=== PATIENT | female | born 1960 | race Caucasian/White ===

== ENCOUNTER 2016-12-11 11:16 | Emergency (ER) | payer OTHER ==
[2016-12-11 11:37] VITALS: BP 116/73; PULSE 86; TEMP 97.3; BMI 29.5
[2016-12-11] MEDS ORDERED: ONDANSETRON 4 MG/2 ML VIAL IVPUSH ONE (12:04)
[2016-12-11] MEDS ORDERED: KETOROLAC TROMETHAMINE 30 MG/1 ML VIAL IVPUSH ONE (12:04)
--- NOTE | 2016-12-11 12:04 | PDOC ---
History of Present Illness - History of Present Illness Initial Comments: 12/11/16 12:27 Patient is a 56 year old female with significant medical hx of borderline diabetes and borderline hypercholeseterolemia who is presenting to the ED with two days of left lower back pain. Patient states that her pain began on her way to work yesterday. She complains of non-radiating, constant, left lower back pain. The patient states she had some mild relief of her pain after taking Tylenol. She also endorses some nausea. Denies any dysuria, hematuria, vomiting , diarrhea, fever, or chills. Allergies: NKDA Social Hx: Denies toxic habits. <Monica Dooley - Last Filed: 12/11/16 15:48> - General History Source: Patient, Old Records Exam Limitations: No Limitations <Lucero Paige - Last Filed: 12/11/16 16:16> - General Chief Complaint: Pain Stated Complaint: BACK/ABD PAIN (KIDNEY) Time Seen by Provider: 12/11/16 11:48 Past History <Monica Dooley - Last Filed: 12/11/16 15:48> - Past Medical History Diabetes: Yes (borderline) Hypercholesterolemia: Yes (bordeline) - Psycho/Social/Smoking Cessation Hx Suicidal Ideation: No Smoking History: Former smoker Have you smoked in the past 12 months: No Information on smoking cessation initiated: No Hx Alcohol Use: No Drug/Substance Use Hx: No <Lucero Paige - Last Filed: 12/11/16 16:16> - Past Medical History Allergies/Adverse Reactions: Allergies Allergy/AdvReac Type Severity Reaction Status Date / Time No Known Allergies Allergy Unverified 12/11/16 11:37 Home Medications: Ambulatory Orders NK [No Known Home Medication] 12/11/16 Review of Systems - Review of Systems Comments:: 12/11/16 12:30 GENERAL/CONSTITUTIONAL: No fever or chills. No weakness. HEAD, EYES, EARS, NOSE AND THROAT: No change in vision. No ear pain or discharge. No sore throat. CARDIOVASCULAR: No chest pain or shortness of breath. RESPIRATORY: No cough, wheezing, or hemoptysis. GASTROINTESTINAL: Nausea. No vomiting, diarrhea or constipation. GENITOURINARY: No dysuria, frequency, or change in urination. MUSCULOSKELETAL: Left lower back pain. No joint or muscle swelling or pain. No neck pain. ENDOCRINE: No increased thirst. No abnormal weight change. SKIN: No rash NEUROLOGIC: No headache, vertigo, loss of consciousness, or change in strength/ sensation. <Monica Dooley - Last Filed: 12/11/16 15:48> *Physical Exam - Vital Signs Last Vital Signs Temp Pulse Resp BP Pulse Ox 97.3 F L 86 17 116/73 100 12/11/16 11:33 12/11/16 11:33 12/11/16 11:33 12/11/16 11:33 12/11/16 11:33 - Physical Exam Comments: 12/11/16 12:31 GENERAL: Awake, alert, and fully oriented, in no acute distress HEAD: No signs of trauma EYES: PERRLA, EOMI, sclera anicteric, conjunctiva clear ENT: Auricles normal inspection, hearing grossly normal, nares patent, oropharynx clear without exudates. Moist mucosa NECK: Normal ROM, supple, no lymphadenopathy, JVD, or masses LUNGS: Breath sounds equal, clear to auscultation bilaterally. No wheezes, and no crackles HEART: Regular rate and rhythm, normal S1 and S2, no murmurs, rubs or gallops ABDOMEN: Soft, nontender, normoactive bowel sounds. No guarding, no rebound. No masses MUSCULOSKELETAL: No CVA tenderness. No cervical, thoracic, or lumbar tenderness. EXTREMITIES: Normal range of motion, no edema. No clubbing or cyanosis. No cords, erythema, or tenderness NEUROLOGICAL: Cranial nerves II through XII grossly intact. Normal speech, normal gait SKIN: Warm, Dry, normal turgor, no rashes or lesions noted. HEMATOLOGIC/LYMPHATIC: No anemia, easy bleeding, or history of blood clots. ALLERGIC/IMMUNOLOGIC: No hives or skin allergy. <Monica Dooley - Last Filed: 12/11/16 15:48> - Vital Signs Last Vital Signs Temp Pulse Resp BP Pulse Ox 97.3 F L 86 17 116/73 100 12/11/16 11:33 12/11/16 11:33 12/11/16 11:33 12/11/16 11:33 12/11/16 11:33 <Lucero Paige - Last Filed: 12/11/16 16:16> ED Treatment Course - LABORATORY CBC & Chemistry Diagram: 12/11/16 12:00 12/11/16 12:00 - RADIOLOGY Radiograph Interpretation: 12/11/16 15:48 Abdomen/Pelvis CT Impression: Essentially normal CT scan of the abdomen and pelvis with no evidence of urinary tract calculi, obstructive uropathy or acute pathology. Reported By: Bird Mccloud MD - Medications Given in the ED: ED Medications Discontinued Medications Generic Name Dose Route Start Last Admin Trade Name Christian PRN Reason Stop Dose Admin Ketorolac Tromethamine 30 mg 12/11/16 12:04 12/11/16 12:19 Toradol Injection - IVPUSH 12/11/16 12:05 30 mg ONCE ONE Administration Ondansetron HCl 4 mg 12/11/16 12:04 12/11/16 12:19 Zofran Injection IVPUSH 12/11/16 12:05 4 mg ONCE ONE Administration <Monica Dooley - Last Filed: 12/11/16 15:48> - LABORATORY CBC & Chemistry Diagram: 12/11/16 12:00 12/11/16 12:00 <Lucero Paige - Last Filed: 12/11/16 16:16> Medical Decision Making - Medical Decision Making 12/11/16 12:05 56-year-old female with no significant past medical history presents the emergency Department with complaints of left-sided lower back pain/flank pain since yesterday unrelieved with Tylenol and minimal nausea. Differential diagnosis includes but is not limited to: Nephrolithiasis, pyelonephritis, muscular strain, muscle spasm, UTI. Plan: 1. Urine analysis 2. Labs 3. Pain management 4. Observe and reevaluate 12/11/16 16:03 Addendum: Labs are reviewed and are noted in the EMR. CT scan of the abdomen and pelvis shows no evidence of renal calculi. I have reevaluated the patient at this time and she is feeling improved. I've discussed all the results of the serologic and radiologic studies with the patient. The plan is to discharge her home, NSAIDs as needed for pain and follow-up with primary care doctor by the end of the week. I have also advised the patient to return to the emergency department if her symptoms persist, worsen, or new symptoms arise. <Lucero Paige - Last Filed: 12/11/16 16:16> *DC/Admit/Observation/Transfer - Attestations Scribe Attestion: 12/11/16 12:33 Documentation prepared by Monica Dooley, acting as medical clerk for Lucero Paige MD. <Monica Dooley - Last Filed: 12/11/16 15:48> - Discharge Dispostion Admit: No - Attestations Physician Attestion: 12/11/16 12:06 I, Dr. Lucero Paige, attest that the scribes documentation that appears above has been prepared under my direction and personally reviewed by me in its entirety. I confirmed that the note above accurately reflects all work, treatment, procedures, and medical decision-making performed by me. <Lucero Paige - Last Filed: 12/11/16 16:16> Diagnosis at time of Disposition: Low back pain - Discharge Dispostion Disposition: HOME Condition at time of disposition: Stable - Referrals Referrals: Tim Aguilar MD [Primary Care Provider] - - Patient Instructions Printed Discharge Instructions: DI for Low Back Pain Additional Instructions: He make take ibuprofen 800 mg every 6-8 hours as needed for your back pain. Please follow-up with your primary care physician by the end of the week and return to the emergency department if your symptoms persist, worsen, or new symptoms arise. - Post Discharge Activity Work/School Note: Back to Work
[2016-12-11] MEDS ORDERED: KETOROLAC TROMETHAMINE 30 MG/1 ML VIAL ONE (12:15)
[2016-12-11] MEDS ORDERED: ONDANSETRON 4 MG/2 ML VIAL ONE (12:15)
[2016-12-11 12:39] LABS: BASOPHIL 2.3 % (0-2.0); EOSINOPHIL 5.8 % (0-4.5); MCH 29.5 pg (25.7-33.7); MCHC 32.8 g/dl (32.0-36.0); MEAN PLT VOLUME 8.1 fl (7.5-11.1); NEUTROPHILS 53.7 % (42.8-82.8); PLATELET COUNT 236 K/MM3 (134-434); RDW 12.9 % (11.6-15.6); WHITE BLOOD COUNT 5.4 K/mm3 (4.0-10.0)
[2016-12-11 13:03] LABS: ALBUMIN 3.5 g/dl (3.4-5.0); ANION GAP 9 (8-16); BILIRUBIN,TOTAL 0.3 mg/dL (0.2-1.0); CALCIUM 8.7 mg/dL (8.5-10.1); CO2 29 mmol/L (21-32); CREATININE 0.9 mg/dL (0.55-1.02); GLUCOSE,RANDOM 106 mg/dL (74-106); SGOT/AST 22 U/L (15-37); SGPT/ALT 21 U/L (12-78); TOT PROT 6.9 g/dl (6.4-8.2)
[2016-12-11 13:04] LABS: ALK PHOS 66 U/L (45-117)
[2016-12-11 13:21] LABS: URINE APPEARANCE CLEAR; URINE BILIRUBIN NEGATIVE (NEGATIVE); URINE COLOR STRAW; URINE GLUCOSE (UA) NEGATIVE (NEGATIVE); URINE KETONE NEGATIVE (NEGATIVE); URINE LEUK ESTERASE NEGATIVE (NEGATIVE); URINE NITRITE NEGATIVE (NEGATIVE); URINE PROTEIN NEGATIVE (NEGATIVE); URINE UROBILINOGEN NEGATIVE E.U./dl (0.2-1.0)
[2016-12-11 13:26] LABS: URINE BLOOD 2+ (NEGATIVE)
[2016-12-11 13:31] LABS: URINE MUCUS RARE; URINE RBC 3 /hpf (0-3); URINE WBC <1 /hpf (3-5)
== END 2016-12-11 16:20 | disposition home or self-care (01) ==
LOC: JER 11:16
PROC: 3E0333Z Introduction of Anti-inflammatory into Peripheral Vein, Percutaneous Approach (ICD-10-PCS; principal; 2016-12-11)
PROC: 3E033GC Introduction of Other Therapeutic Substance into Peripheral Vein, Percutaneous Approach (ICD-10-PCS; 2016-12-11)
DX: M54.5 Low back pain (principal)
CPT/HCPCS: 36415; 74176-TC; 80053; 81003; 81015; 85025; 99282-25

== ENCOUNTER 2018-02-25 10:47 | Day surgery (SDC) | payer OTHER ==
[2018-02-24 14:06] VITALS: BMI 26.4
[2018-02-25 11:29] VITALS: TEMP 98.1
[2018-02-25 12:06] VITALS: PULSE 72
[2018-02-25 12:11] VITALS: BP 107/69
--- NOTE | 2018-02-26 14:32 | PATH ---
Surgical Pathology Report Patient Name: CORINA PATTON [facility]. Rec. #: [id number] /Age/Gender: 1960 (Age: 57) / F Account: [id number] Location: U-ENDOSCOPY Taken: 02/25/2018 Received: 02/25/2018 Reported: 02/26/2018 Physicians: Bear Marrero D.O. Specimen(s) Received A: BX 2ND PORTION DUODENUM B: BX BODY Clinical History Dyspepsia, GERD Postoperative diagnosis: duodenitis, hiatal hernia Final Diagnosis A. SECOND PORTION DUODENUM, BIOPSY: DUODENAL MUCOSA WITH NO DIAGNOSTIC ABNORMALITIES. NO HISTOLOGIC EVIDENCE OF CELIAC DISEASE B. BODY, BIOPSY: GASTRIC MUCOSA WITH ACTIVE CHRONIC GASTRITIS. IMMUNOSTAIN IS POSITIVE FOR H. PYLORI ORGANISMS. NEGATIVE FOR INTESTINAL METAPLASIA. Electronically Signed Lamar Comer M.D. Gross Description A. Received in formalin, labeled "biopsy 2nd portion of duodenum" are 4 escalante, irregular portions of soft tissue ranging from 0.1-0.2 cm. in greatest dimension. The specimens are submitted in toto in one cassette. B. Received in formalin, labeled "biopsy angularis" are 3 escalante, irregular portions of soft tissue ranging from 0.1-0.3 cm. in greatest dimension. The specimens are submitted in toto in one cassette. 02/25/201802/25/2018
== END 2018-02-25 12:27 | disposition home or self-care (01) ==
LOC: JASU-ENDO 10:47
PROVIDERS: ATTEND Internal Medicine Gastroenterology
PROC: 0DB68ZX Excision of Stomach, Via Natural or Artificial Opening Endoscopic, Diagnostic (ICD-10-PCS; 2018-02-25)
PROC: 0DB98ZX Excision of Duodenum, Via Natural or Artificial Opening Endoscopic, Diagnostic (ICD-10-PCS; principal; 2018-02-25 12:15)
DX: K29.50 Unspecified chronic gastritis without bleeding (principal); B96.81 Helicobacter pylori [H. pylori] as the cause of diseases classified elsewhere; R10.13 Epigastric pain; K44.9 Diaphragmatic hernia without obstruction or gangrene
CPT/HCPCS: 88305-TC; 88342-TC

== ENCOUNTER 2018-04-01 11:05 | Day surgery (SDC) | payer OTHER ==
[2018-04-01 11:08] VITALS: BMI 26.0
[2018-04-01 12:38] VITALS: TEMP 97.6
[2018-04-01 15:15] VITALS: BP 92/64; PULSE 61
--- NOTE | 2018-04-02 16:28 | PATH ---
Surgical Pathology Report Patient Name: CORINA PATTON [facility]. Rec. #: [id number] /Age/Gender: 1960 (Age: 57) / F Account: [id number] Location: U-ENDOSCOPY Taken: 04/01/2018 Received: 04/01/2018 Reported: 04/02/2018 Physicians: Bear Marrero D.O. Specimen(s) Received A: BX HEPATIC FLEXURE POLYP B: BX HEPATIC FLEXURE POLYP X2 C: BX PROXIMAL TRANSVERSE COLON POLYP D: BX TRANSVERSE COLON POLYP Clinical History Abdominal pain, family history of colon polyp Postoperative diagnosis: Colon polyps, diverticulosis Final Diagnosis A. HEPATIC FLEXURE POLYP, POLYPECTOMY: TUBULAR ADENOMA. B. SMALL HEPATIC FLEXURE POLYP X 2, POLYPECTOMY: TUBULAR ADENOMA, TWO FRAGMENTS. C. PROXIMAL TRANSVERSE COLON POLYP, POLYPECTOMY: HYPERPLASTIC POLYP. D. TRANSVERSE COLON POLYP, POLYPECTOMY: TUBULAR ADENOMA. Electronically Signed Lamar Comer M.D. Gross Description A. Received in formalin, labeled "hepatic flexure polyp" is a escalante, irregular portion of soft tissue measuring 0.4 cm. in greatest dimension. The specimen is submitted in toto in one cassette. B. Received in formalin, labeled "biopsy small hepatic flexure polyps x2" are 3 escalante, irregular portions of soft tissue averaging 0.2 cm. in greatest dimension. The specimens are submitted in toto in one cassette. C. Received in formalin, labeled "biopsy proximal transverse colon polyp" are 2 escalante, irregular portions of soft tissue measuring 0.2 and 0.3 cm. in greatest dimension. The specimens are submitted in toto in one cassette. D. Received in formalin, labeled "biopsy transverse colon polyp" is a escalante, irregular portion of soft tissue measuring 0.3 cm. in greatest dimension. The specimen is submitted in toto in one cassette. DL/04/01/2018 saudi/04/01/2018
== END 2018-04-01 15:45 | disposition home or self-care (01) ==
LOC: JASU-ENDO 11:05
PROVIDERS: ATTEND Internal Medicine Gastroenterology
PROC: 0DBL8ZX Excision of Transverse Colon, Via Natural or Artificial Opening Endoscopic, Diagnostic (ICD-10-PCS; 2018-04-01)
PROC: 0DBL8ZX Excision of Transverse Colon, Via Natural or Artificial Opening Endoscopic, Diagnostic (ICD-10-PCS; principal; 2018-04-01 12:00)
DX: Z12.11 Encounter for screening for malignant neoplasm of colon (principal); Z80.0 Family history of malignant neoplasm of digestive organs; K57.30 Diverticulosis of large intestine without perforation or abscess without bleeding; K64.8 Other hemorrhoids; D12.3 Benign neoplasm of transverse colon; K63.5 Polyp of colon
CPT/HCPCS: 88305-TC

== ENCOUNTER 2020-02-22 22:18 | Emergency (ER) | payer OTHER ==
[2020-02-22 22:34] VITALS: BP 132/74; PULSE 82; TEMP 98.2; BMI 28.3
[2020-02-22] MEDS ORDERED: IBUPROFEN 600 MG TABLET (FP) PO ONE ×2 (22:37→22:44)
--- NOTE | 2020-02-22 22:39 | PDOC ---
History of Present Illness - General Chief Complaint: Injury Stated Complaint: INJURY/LACERATION Time Seen by Provider: 02/22/20 22:37 History Source: Patient - History of Present Illness Initial Comments: 02/22/20 23:11 59-year-old female reports that she got surprised by dogs as she was coming down the stairs and fell backwards and landed on the left wrist complaining of left wrist pain. Patient is noted to have some swelling to the left wrist Past History - Medical History Allergies/Adverse Reactions: Allergies Allergy/AdvReac Type Severity Reaction Status Date / Time No Known Allergies Allergy Unverified 12/11/16 11:37 Home Medications: Ambulatory Orders Oxycodone HCl/Acetaminophen [Percocet 5-325 mg Tablet] 1 - 2 tab PO Q6H PRN #7 tab MDD 4 02/23/20 Anemia: No Asthma: No Cancer: No Cardiac Disorders: No CVA: No COPD: No CHF: No Dementia: No Diabetes: No GI Disorders: No Disorders: No HTN: No Hypercholesterolemia: No Liver Disease: No Seizures: No Thyroid Disease: No - Psycho-Social/Smoking History Smoking History: Never smoked Have you smoked in the past 12 months: No If you are a former smoker, when did you quit?: AGE 32 - Substance Abuse Hx (Audit-C & DAST Scrn) How often the patient has a drink containing alcohol: Never Score: In Men: 4 or > Positive; In Women: 3 or > Positive: 0 Screen Result (Pos requires Nsg. Audit-10AR): Negative In the last yr the pt used illegal drug/Rx for NonMed reason: No Score: Yes response is considered Positive: 0 Screen Result (Positive result requires Nsg. DAST-10): Negative Review of Systems - Review of Systems Able to Perform ROS?: Yes Is the patient limited Chinese proficient: No Musculoskeletal: Yes: Other (limited rom of left wrist) *Physical Exam - Vital Signs Last Vital Signs Temp Pulse Resp BP Pulse Ox 98.2 F 82 19 132/74 100 02/22/20 22:26 02/22/20 22:26 02/22/20 22:26 02/22/20 22:26 02/22/20 22:26 - Physical Exam General Appearance: Yes: Appropriately Dressed Extremity: positive: Other (limited rom to left wrist, ) Integumentary: positive: Normal Color, Dry, Warm Neurologic: positive: Fully Oriented, Alert, Normal Mood/Affect Procedures - Consent Consent obtained: Verbal, From Patient - Splinting Splint Location: Left: Wrist Pre-Proc Neuro Vasc Exam: normal Hand-Made Type: orthoglass Splint Type: Yes: Sugar Tong Post-Proc Neuro Vasc Exam: normal Theo Bandage: 4" Sling: Yes Complications: No ED Treatment Course - RADIOLOGY Radiology Studies Ordered: Category Date Time Status WRIST W/HAND-LEFT* [RAD] Stat Radiology 02/22/20 22:37 Ordered ED Progress Note - Progress Note Progress Note: 02/23/20 04:05 A: colles fracture P: xray splint ortho referral Discharge - Discharge Information Problems reviewed: Yes Clinical Impression/Diagnosis: Colles' fracture of left radius, initial encounter for closed fracture Condition: Stable Disposition: HOME - Additional Discharge Information Prescriptions: Oxycodone HCl/Acetaminophen [Percocet 5-325 mg Tablet] 1 - 2 tab PO Q6H PRN #7 tab MDD 4 PRN Reason: Pain - Follow up/Referral Referrals: Tim Aguilar MD [Primary Care Provider] - Declan Lloyd DO [Staff Physician] - Call tomorrow Manolo Smith DO [Staff Physician] - Call tomorrow - Patient Discharge Instructions Patient Printed Discharge Instructions: How to Use a Sling, Colles' Fracture Additional Instructions: Apply ice to the area for the first 24 to 48 hours. Keep elevated above the level of your heart. Use sling and splint Take ibuprofen every 6 hours as needed for pain. Take Percocet as prescribed for moderate pain it is important that you follow-up with the orthopedic doctor Return to the emergency room for any worsening symptoms - Post Discharge Activity Work/Back to School Note: Back to Work
[2020-02-22] MEDS ORDERED: DIPHTH,PERTUSS(ACELL),TET 0.5 ML DISP.SYRIN IM ONE ×2 (23:12→23:14)
[2020-02-22] MEDS ORDERED: BACITRACIN 0.9 GM PACKET ONE (23:42)
[2020-02-22] MEDS ORDERED: BACITRACIN 15 GM TUBE TOPICAL OINTMENT TP ONE (23:43)
== END 2020-02-23 00:17 | disposition home or self-care (01) ==
LOC: JER 22:18
PROC: 3E0234Z Introduction of Serum, Toxoid and Vaccine into Muscle, Percutaneous Approach (ICD-10-PCS; principal; 2020-02-22)
DX: S52.532A Colles' fracture of left radius, initial encounter for closed fracture (principal)
CPT/HCPCS: 73110-TC-LT-FY; 73130-TC-LT-FY; 90715; 99284-25

== ENCOUNTER 2020-06-03 14:54 | Emergency (ER) | payer OTHER ==
[2020-06-03 15:04] VITALS: BP 117/69; PULSE 91; BMI 28.0
[2020-06-03 15:05] VITALS: TEMP 98.1
== END 2020-06-03 16:22 | disposition home or self-care (01) ==
LOC: JER 14:54
DX: M54.6 Pain in thoracic spine (principal)
CPT/HCPCS: 71046-TC-FY; 99284-25